=== PATIENT | male | born 1995 | race Caucasian/White ===

== ENCOUNTER 2017-10-26 19:43 | Emergency (ER) | payer SELFPAY ==
[~2017-10-26] VITALS: Ht 193 cm; Wt 90.9 kg
[2017-10-26 19:46] VITALS: BP 146/94; TEMP 97.9
[2017-10-26] MEDS ORDERED: NORCO 325 MG-7.1 TAB PO (21:17)
[2017-10-26 21:47] VITALS: PULSE 64
== END 2017-10-26 21:48 | disposition home or self-care (01) ==
LOC: COL.ER 19:43
DX: S90.31XA Contusion of right foot, initial encounter (principal); S70.11XA Contusion of right thigh, initial encounter; F17.220 Nicotine dependence, chewing tobacco, uncomplicated; W18.39XA Other fall on same level, initial encounter; X50.0XXA Overexertion from strenuous movement or load, initial encounter; Y92.828 Other wilderness area as the place of occurrence of the external cause; Y93.23 Activity, snow (alpine) (downhill) skiing, snowboarding, sledding, tobogganing and snow tubing